=== PATIENT | male | born 1965 | race Caucasian/White ===

== ENCOUNTER 2020-02-06 09:08 | Outpatient (CLI) | payer OTHER ==
[2020-02-06 10:47] LABS: ALT (SGPT) 62 U/L (8-55); AST (SGOT) 40 U/L (5-34); Albumin 4.3 g/dL (3.5-5.0); Alkaline Phosphatase 88 U/L (40-110); Anion Gap 15 mmol/L (10-20); BUN (Urea Nitrogen) 17 mg/dL (8.4-25.7); Bilirubin, Total 1.2 mg/dL (0.2-1.2); Calc. Creatinine Clearance 0 mL/min (70-130); Calcium 9.7 mg/dL (7.8-10.44); Carbon Dioxide 24 mmol/L (22-29); Cardiac Risk 3.1 (Less than 4.5); Chloride 107 mmol/L (98-107); Cholesterol 80 mg/dl (< 200 Desired); Estimated GFR-MDRD Greater than 90; Globulin 3.2 g/dL (2.4-3.5); HDL Cholesterol 26 mg/dL (>60 Neg Risk); LDL Cholesterol, Calculated 42 mg/dL; Potassium 4.6 mmol/L (3.5-5.1); Protein, Total 7.5 g/dL (6.0-8.3); Sodium 141 mmol/L (136-145); Triglycerides 62 mg/dL (Less than 150)
[2020-02-06 11:07] LABS: #Basophils 0.1 thou/uL (0.0-0.2); #Eosinphils 0.1 thou/uL (0.0-0.7); #Monocytes 0.8 thou/uL (0.11-0.59); #Neutrophils 7.4 thou/uL (1.40-6.50); %Eosinophils 0.7 % (0.0-10.0); %Lymphocytes 26.5 % (21.0-51.0); %Neutrophils 64.8 % (42.0-75.0); Hemoglobin 16.8 g/dL (14.0-18.0); Mean Corpuscular HGB CONC 32.5 g/dL (32.0-36.0); Mean Corpuscular Hemoglobin 30.5 pg (27.0-31.0); Mean Corpuscular Volume 93.7 fL (78.0-98.0); Mean Platelet Volume 6.1 fL (7.4-10.4); Platelet Count 195 thou/uL (130-400); RBC Distribution Width 10.9 % (11.5-14.5); Red Blood Cell (RBC) Count 5.51 mill/uL (4.70-6.10); White Blood Cell (WBC) Count 11.4 thou/uL (4.8-10.8)
[2020-02-06 11:13] LABS: Critical Call Chemistry THIS IS NOT A CRITICAL RESULT; Glucose 184 mg/dL (70-105)
[2020-02-06 17:10] LABS: Hemoglobin A1c 7.5 % (4.0-6.0)
== END 2020-02-06 09:09 | disposition home or self-care (01) ==
LOC: BURLAB 09:08
PROVIDERS: ATTEND Family Medicine
DX: Z12.5 Encounter for screening for malignant neoplasm of prostate (principal); Z13.6 Encounter for screening for cardiovascular disorders; E11.9 Type 2 diabetes mellitus without complications; I10 Essential (primary) hypertension
CPT/HCPCS: 36415; 80053; 80061; 83036; 85025

== ENCOUNTER 2020-09-12 08:55 | Outpatient (CLI) | payer OTHER ==
[2020-09-12 10:14] LABS: Thyroid Stimulating Hormone 1.3813 uIU/mL (0.35-4.94)
[2020-09-12 18:10] LABS: Creatinine, Urine 131.77 mg/dL (63-166); Microalbumin/Creat Ratio 7.6 mg/g (Less than 30)
[2020-09-12 19:14] LABS: PSA-Asymptomatic (SCREENING) 1.28 ng/mL (0-4.0)
== END 2020-09-12 08:56 | disposition home or self-care (01) ==
LOC: BURLAB 08:55
PROVIDERS: ATTEND Family Medicine
DX: Z12.5 Encounter for screening for malignant neoplasm of prostate (principal); E11.9 Type 2 diabetes mellitus without complications; I10 Essential (primary) hypertension
CPT/HCPCS: 36415; 82043; 84443; G0103

== ENCOUNTER 2024-06-03 12:33 | Emergency (ER) | payer OTHER ==
[2024-06-03] MEDS ORDERED: Iopamidol 370 76% 100 ML VIAL ONE (13:07)
[2024-06-03 14:19] LABS: ALT (SGPT) 359 U/L (8-55); AST (SGOT) 327 U/L (5-34); Albumin 3.1 g/dL (3.5-5.0); Alkaline Phosphatase 166 U/L (40-110); Anion Gap 13 mmol/L (10-20); BUN (Urea Nitrogen) 18 mg/dL (8.4-25.7); Calc. Creatinine Clearance 0 mL/min (70-130); Calcium 9.6 mg/dL (7.8-10.44); Carbon Dioxide 21 mmol/L (22-29); Chloride 106 mmol/L (98-107); Estimated GFR 103; Globulin 3.9 g/dL (2.4-3.5); Glucose 262 mg/dL (70-105); Potassium 4.4 mmol/L (3.5-5.1); Sodium 136 mmol/L (136-145)
[2024-06-03 15:16] LABS: #Basophils 0.1 thou/uL (0.0-0.2); #Eosinophils 0.2 thou/uL (0.0-0.7); #Lymphocytes 1.4 thou/uL (1.20-3.40); #Monocytes 0.8 thou/uL (0.11-0.59); #Neutrophils 5.7 thou/uL (1.40-6.50); %Basophils 0.8 % (0.0-1.0); %Eosinophils 2.8 % (0.0-10.0); %Lymphocytes 16.9 % (21.0-51.0); %Monocytes 9.3 % (0.0-10.0); %Neutrophils 70.2 % (42.0-75.0); Hematocrit 45.2 % (42.0-52.0); Mean Corpuscular HGB CONC 33.2 g/dL (32.0-36.0); Mean Corpuscular Hemoglobin 30.5 pg (27.0-31.0); Mean Platelet Volume 6.5 fL (7.4-10.4); Platelet Count 156 10x3/uL (130-400); RBC Distribution Width 11.2 % (11.5-14.5); Red Blood Cell (RBC) Count 4.92 mill/uL (4.70-6.10); White Blood Cell (WBC) Count 8.2 10x3/uL (4.8-10.8)
[2024-06-03 15:30] LABS: Troponin I Less than 0.010 ng/mL (< 0.028)
[2024-06-03] MEDS ORDERED: Cefepime 2 GM VIAL ONE (17:13)
[2024-06-03] MEDS ORDERED: Sodium Chloride 0.9% 100 ML ONE (17:13)
[2024-06-03] MEDS ORDERED: Vancomycin HCl 750 MG VIAL ONE (17:48)
[2024-06-03 18:03] LABS: HBsAg Index 0.32 S/CO (0-0.99); Hep A IgM AB NONREACTIVE (NonReactive); Hep A IgM S/CO 0.86 S/CO (0-0.79); Hep B Surf Ag NONREACTIVE S/CO (NonReactive); Hep C IgG Ab Reflex HepC Qnt S/CO (NonReactive); Hep C Index 11.39 S/CO (0-0.79); Hepatitis B Core IgM Abs NONREACTIVE S/CO (NonReactive)
[2024-06-07 17:37] LABS: HCV I.Units 16100000 IU/mL (.); HCV I.Units log10 7.207 (.); Hep C PCR-Quant See Final Results IU/mL (.)
== END 2024-06-03 20:50 | disposition short-term general hospital (02) ==
LOC: BURERS 12:33
DX: J85.2 Abscess of lung without pneumonia (principal); R74.01 Elevation of levels of liver transaminase levels; E11.9 Type 2 diabetes mellitus without complications; I10 Essential (primary) hypertension; Z79.899 Other long term (current) drug therapy
CPT/HCPCS: 71260; 74177; 80053; 80074; 83690; 83880; 84484; 85025; 87522; 93005; 96374; 96375; J0692; J3370; Q9967